=== PATIENT | female | born 1965 | race Caucasian/White ===

== ENCOUNTER 2019-10-24 09:11 | Emergency (ER) | payer OTHER, SELFPAY ==
--- NOTE | 2019-10-24 09:15 | ED.GENADULT ---
HPI - General Adult General Chief complaint: Extremity Injury, Lower Stated complaint: right leg/foot pain Time Seen by Provider: 10/24/19 09:25 Source: patient Mode of arrival: ambulatory Limitations: no limitations History of Present Illness HPI narrative: 53-year-old female patient presents to the [facility] with complaints of right knee and right foot swelling x6 days. Patient states that 6 days ago she fell on her right knee injuring her leg. Patient states she has had bruising above the right knee as well as below the knee and noticed that she also does have some fluid around her knee which she has had before. Patient states that she came in today because this morning she noticed that her foot and ankle area was swelling significantly turning her toes purple. Patient states that it was causing a little bit of numbness and tingliness but that it did improve when she got up and walked around. Patient denies taking anything for pain. Patient states she really has not had too much pain except for around the knee area when she walks at times. Patient denies wrapping her foot and ankle and denies wrapping her knee. Patient states that she did sleep with her leg elevated yesterday but mostly when she has been sitting she has not been elevating her leg or foot. Related Data Allergies Allergy/AdvReac Type Severity Reaction Status Date / Time No Known Allergies Allergy Verified 02/15/17 06:40 Review of Systems Review of Systems: Narrative: CONSTITUTIONAL: Denies fever, chills, or sweats. EYES: Denies visual changes, redness, or discharge. ENT: Denies rhinorrhea, congestion, sore throat, or otalgia. CARDIOVASCULAR: Denies chest pain, palpitations, or edema. RESPIRATORY: Denies cough or dyspnea. GASTROINTESTINAL: Denies abdominal pain, nausea, vomiting, or diarrhea. GENITOURINARY: Denies dysuria or hematuria. SKIN: Denies rash or itching. MUSCULOSKELETAL: Denies back pain, joint pain, or myalgia. Positive right knee swelling and right foot swelling NEUROLOGIC: Denies headache, numbness, or weakness. PSYCHIATRIC: Denies anxiety or depression. [facility] Past Medical History Medical History (Updated 10/24/19 @ 09:33 by CLIFF Glover) Preeclampsia Surgical History Surgical History (Updated 10/24/19 @ 09:16 by Felicia D. Anahi, COIN COLLECTOR) Previous section Comments At the time of my signature I agree with nursing past medical history, surgical, social, and family history. There is no relevant family history pertinent to the presenting complaint. Exam Narrative: Exam Narrative: GENERAL: Well-appearing, well-nourished, and in no acute distress. HEAD: Normocephalic, atraumatic. EYES: PERRLA and EOMI. ENT: Nares clear, no rhinorrhea or epistaxis. Mucous membranes moist. NECK: Supple. No lymphadenopathy CHEST: Clear to auscultation. No respiratory distress. HEART: Regular rate and rhythm. No murmur heard. Normal peripheral pulses. ABDOMEN: Soft, nontender, nondistended, normal active bowel sounds. EXTREMITIES: Patient is able to bear weight and ambulate without pain. No surface trauma, STS, there is an obvious effusion noted over the right knee. There is some healing bruising noted to the right thigh area above the right knee as well as some bruising to the anterior tib-fib area right below the right knee. No overlying erythema or warmth. The R knee is without obvious asymmetry or deformity when compared to the L knee. Patient is able to do deep knee bend with symmetry, fully extend knee, internal and external rotation. Slight tendernss to palpation of the patella, effusion and ballottement present to right knee. No tenderness over the infrapatellar tendon. No tenderness over the medial or lateral joint lone ot the medial or lateral tibial plateaus. no tenderness over the proximal fibular head. no tenderness, fullness, or mass of the popliteal fossa. No quadriceps tenderness. No laxity of the ACL, PCL, MCL, or LCL. No collatera
[2019-10-24 09:24] VITALS: BP 151/75; PULSE 88; RESP 16; TEMP 36.9; O2SAT 97
== END 2019-10-24 09:45 | disposition home or self-care (01) ==
PROVIDERS: Emergency Provider Nurse Practitioner Family
DX: M25.461 Effusion, right knee (principal); M79.89 Other specified soft tissue disorders; R03.0 Elevated blood-pressure reading, without diagnosis of hypertension
CPT/HCPCS: 99212; G0463

== ENCOUNTER 2023-11-17 09:19 | Emergency (ER) | payer OTHER, SELFPAY ==
--- NOTE | ~2023-11-17 | XR_ITS ---
EXAMINATION: XR knee LT min 4V DATE: 11/17/2023 09:53 INDICATION: Unable to straighten left knee. TECHNIQUE: 4 views of left knee were obtained. COMPARISON: None. FINDINGS: Bone alignment is normal. No fracture. There is severe osteoarthritis of medial compartment , moderate osteoarthritis of patellofemoral compartment, and mild osteoarthritis of lateral compartme nt. There is a small knee joint effusion. IMPRESSION: 1. Severe left knee osteoarthritis. 2. Small left knee joint effusion. Reviewed, dictated and finalized at location A.
--- NOTE | 2023-11-17 09:22 | ED.EXTPRO ---
HPI - Extremity Problem General Chief complaint: Extremity Problem,Nontraumatic Stated complaint: Left Knee Pain Time Seen by Provider: 11/17/23 09:37 Source: patient, RN notes reviewed and old records reviewed Mode of arrival: ambulatory Limitations: no limitations History of Present Illness HPI Narrative: 57-year-old female presents to the [facility] with complaints of 1 and half weeks of knee ?tightness? as well as at times states that she cannot straighten her knee. Denies any injury. Denies any increased swelling. Patient is morbidly obese. Related Data Home Medications Medication Instructions Recorded Confirmed No Home Medications 11/17/23 11/17/23 Allergies Allergy/AdvReac Type Severity Reaction Status Date / Time No Known Allergies Allergy Verified 11/17/23 09:37 Review of Systems Review of Systems: All systems reviewed & are unremarkable except as noted in HPI and below Constitutional: Constitutional: Reports no additional constitutional complaints Eyes: Eyes: Reports no additional eye complaints ENT: Reports system reviewed and no additional complaints, except as documented Cardiovascular: Cardiovascular: Reports no additional cardiovascular complaints, Denies chest pain and Denies dyspnea Respiratory: Respiratory: Reports no additional respiratory complaints, Denies chest congestion, Denies cough and Denies dyspnea Gastrointestinal: Gastrointestinal: Reports no additional gastrointestinal complaints, Denies abdominal pain, Denies nausea and Denies vomiting Musculoskeletal: Musculoskeletal: Reports as per HPI and Reports arthralgias (Left knee) Integumentary/Breasts: Skin/Breast: Reports system reviewed and no additional complaints, except as docu Neurologic: Reports system reviewed and no additional complaints, except as documented Psychiatric: Psychiatric: Reports no additional psychiatric complaints Allergic/Immunologic: Allergic/Immunologic: Reports no additional allergic/immunologic complaints PMFSH Past Medical History Medical History Preeclampsia Surgical History Surgical History Previous section Comments At the time of my signature, I reviewed and agree with the nursing past medical, surgical, social, and family history. There is no relevant family history pertinent to the patient complaint. Exam Const: General: cooperative, healthy appearing, comfortable, no acute distress, well developed, alert and well nourished Nutritional Appearance: well nourished and obese morbidly obese Orientation/consciousness: patient oriented x3 Limitations: no limitations HENMT: Head: normal to inspection Ears: hearing grossly normal bilaterally and external ears normal Face/Nose/Sinus: Normal external nose present, Normal nares present, Normal nasal mucous membranes and turbinates present, normal facial exam and face symmetric Face and sinus: normal facial exam and face symmetric Eyes: General: appearance normal, both eyes and all related structures Alignment and Position: alignment normal Periorbital: periorbital findings normal Pupils: Equal, round and reactive pupils present EOM: EOMs intact bilaterally Neck: Neck: normal visual inspection and full ROM Chest: Chest palpation & inspection: normal inspection of the chest Resp: Effort & Inspection: normal respiratory effort and able to speak in complete sentences Cardio: Rate: regular rate Rhythm: regular rhythm Skin: General skin exam: normal color and no rashes or lesions noted Lesions: no lesions Rashes: no rashes Trauma: no lacerations or abrasions Wounds: no wounds Neuro: General: patient oriented x3, tone normal, moves all extremities and no meningeal signs Cranial nerves: Yes Equal, round and reactive pupils present Cognition (Neuro): normal cognition Speech: normal speech Gait exam (Neuro): Other gait o
[2023-11-17 09:31] VITALS: BP 154/95; PULSE 83; RESP 16; TEMP 36.8; O2SAT 97
== END 2023-11-17 10:25 | disposition home or self-care (01) ==
PROVIDERS: Emergency Provider Nurse Practitioner
DX: M17.12 Unilateral primary osteoarthritis, left knee (principal); E66.01 Morbid (severe) obesity due to excess calories; Z68.43 Body mass index [BMI] 50.0-59.9, adult
CPT/HCPCS: 73564; 99213; G0463

== ENCOUNTER 2024-04-21 01:15 | Day surgery (SDC) | payer OTHER, SELFPAY ==
[2024-04-15 10:16] VITALS: BMI 48.6
--- NOTE | 2024-04-15 10:22 | PC.NURSE ---
Report to the Outpatient Waiting Room, entrance under the green pavilion located off [facility], at time _1pm_ on date _[id number]_. Planned Procedure Time: _3pm_.? Time changes happen often and if your time is changed the preop area will call you the afternoon before. - You and your visitor will be asked to self-screen and do not enter if you have any COVID symptoms. Please call surgeon if you need to reschedule. - A mask is optional within the hospital at this time. Patients may have clear liquids (water, carbonated beverages, clear teas, apple juice) until 3 hours prior to surgery with a maximum of 20 ounces. - No food from midnight until time of surgery and no smoking Take only the following medications with a SIP of water on the morning of surgery: ___None___ DO NOT STOP ANY OF YOUR OTHER PRESCRIPTION MEDICATIONS PRIOR TO SURGERY EXCEPT THE FOLLOWING Medications to discontinue per physician ____Avoid Ibuprofen, Acetaminophen is OK to use. Please no make-up, nail burkinan, hairspray, perfume, deodorant, or body powder the day of surgery.? No jewelry (including any body piercings) or valuables the day of surgery, leave them at home.? Please take a shower or bath the night before, or the morning of, surgery with an antibacterial soap.? Wear comfortable, loose fitting clothing.? - Jewelry must be removed prior to entering the operating room.? Rings and piercings that are not removed may be cut off. - The hospital will not accept responsibility for valuables.? - Please leave all valuables, including medications, at home the day of surgery. If you are going home after surgery, a licensed flatbed company driver must drive you home.? - NO public transportation without another adult if you receive anesthesia. - We recommend that an adult stay with you for 24 hours following discharge. - We also recommend that you do not drive, make important decision, drink alcoholic beverages, or take any drugs that were not prescribed by your health care provider for at least 24 hours after your discharge time. Follow any additional instructions given to you from your surgeon. Telephone instructions given to _Catei__and asked if any additional questions and then verbalized understanding. Patient advised to call surgeon office or pre surgery nurse liaison [phone] if any additional questions.
--- NOTE | 2024-04-20 15:52 | WPDANESEPP ---
Anes - Eval Pre Procedure Procedure: Operation Date: 04/21/24 14:30 Proposed Procedures p Hysteroscopy Dilation and Curettage - Mavis Roland MD Date/Time: 04/20/24 15:52 Pre Op Diagnosis: post menopausal bleeding Patient Data Age: 58 Gender: F Height: 1.65 m Weight: 132.7 kg Allergies Allergy/AdvReac Type Severity Reaction Status Date / Time No Known Allergies Allergy Verified 04/15/24 10:14 Home Medications Medication Instructions Recorded Confirmed Type ibuprofen 200 mg tablet (Advil) 200 mg PO Q6H PRN Pain 01/31/24 04/15/24 History Patient hx anesthesia problems: none Family hx anesthesia problems: none Results Review: All pre-operative results and documents have been reviewed as part of the pre-operative evaluation. [facility] Past Medical History Medical History Preeclampsia Surgical History Surgical History Previous section Family History Family History Mother Cancer Father Diabetes mellitus Hypertension Sibling Asthma Diabetes mellitus Cancer Grandparent Cancer Cerebrovascular accident Social History Social History Smoking status: Never smoker Alcohol intake: current Alcohol use details: 2 drinks per year Substance use: never Do You Feel Safe in your Home?: Yes Lack of Transportation: No Lack of Food: Never True Current Housing: I Have Housing Concerned About Future Housing: No Difficulty Paying Gas/Electric Bills: No Difficulty Paying for Meds: No Currently Unemployed: No Education: High School Diploma/GED Difficulty w/ Childcare or Family Care: No Living arrangements: with family Additional living arrangements comments: son 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
[2024-04-21] VITALS (7 sets, daily range): BP systolic 117–157; BP diastolic 65–84; PULSE 67–93; RESP 14–18; TEMP 36.1–36.3; O2SAT 99–100
--- NOTE | 2024-04-21 07:14 | WPDHPUPDATE1 ---
History and Physical Update Update Date/Time: 04/21/24 07:14 History and Physical has been reviewed, including an updated exam of the patient. There are NO changes in the patient's condition. Risks, benefits, and alternatives have been discussed and questions answered. Patient agrees to proceed with hysteroscopy with D&C.
--- NOTE | 2024-04-21 12:47 | P.PNAN_ITS ---
Anes - Initial Pre Proc Eval Procedure: Operation Date: 04/21/24 14:30 Proposed Procedures p Hysteroscopy Dilation and Curettage - Mavis Roland MD Date/Time: 04/21/24 12:47 Surgeon: Mavis Roland MD Pre Op Diagnosis: post menopausal bleeding Patient Data Age: 58 Gender: F Height: 1.65 m Weight: 132.7 kg Allergies Allergy/AdvReac Type Severity Reaction Status Date / Time No Known Allergies Allergy Verified 04/15/24 10:14 Home Medications Medication Instructions Recorded Confirmed Type ibuprofen 200 mg tablet (Advil) 200 mg PO Q6H PRN Pain 01/31/24 04/15/24 History Patient hx anesthesia problems: none Family hx anesthesia problems: none Results Review: All pre-operative results and documents have been reviewed as part of the pre- operative evaluation. [facility] Past Medical History Medical History Preeclampsia Surgical History Surgical History Previous section Family History Family History Mother Cancer Father Diabetes mellitus Hypertension Sibling Asthma Diabetes mellitus Cancer Grandparent Cancer Cerebrovascular accident Social History Social History Smoking status: Never smoker Alcohol intake: current Alcohol use details: 2 drinks per year Substance use: never Do You Feel Safe in your Home?: Yes Lack of Transportation: No Lack of Food: Never True Current Housing: I Have Housing Concerned About Future Housing: No Difficulty Paying Gas/Electric Bills: No Difficulty Paying for Meds: No Currently Unemployed: No Education: High School Diploma/GED Difficulty w/ Childcare or Family Care: No Living arrangements: with family Additional living arrangements comments: son 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 Gender identity (if verbalized by the patient): Female Sexual Orientation (if Verbalized by the Patient): Straight or Heterosexual Spiritual care concerns: No Anes - Eval Final PreProcedure Day of Procedure 04/21/24 12:47 Patient weight: morbidly obese Heart: regular rate and rhythm Lungs: clear to auscultation Airway: Mallampati scale class II Neurological: alert and oriented Last oral intake: >/= 8 hours ASA classification: III Emergent: no Anesthetic plan: proceed Anesthesia type and monitoring: general GIVS and standard monitoring Results Review: All pre-operative results and documents have been reviewed as part of the pre- operative evaluation. Informed Consent: The patient's anesthetic plan and its attendant risks and benefits were discussed with the patient/family/POA. Questions were solicited and answers provided to the satisfaction of the patient/family/POA.
[2024-04-21] MEDS: LACTATED RINGERS 1,000 ML 30 ML IV CONT (12:50)
[2024-04-21] MEDS: ACETAMINOPHEN 500 MG TABLET 1000 MG PO (13:19)
[2024-04-21] MEDS: KETOROLAC 15 MG/ML VIAL (*BKC) IV PUSH (14:55)
--- NOTE | 2024-04-21 15:05 | P.OP_ITS ---
Procedure Note - Detailed Date of Procedure 04/21/24 Pre-op Diagnosis post menopausal bleeding Post-op Diagnosis Same Procedure Performed Hysteroscopy with polypectomy Surgeon Mavis Roland MD Anesthesia General Findings Uterus sounded to 10cm, cervix stenotic. On entry into cervical canal, large polyp noted-- found to have been arising from the left cornua/posterior wall. Other smaller polyps noted from right cornua-- all polyps removed using the Aveta tissue shaver. Increased vascularity noted throughout cavity. Good hemostasis noted at end of case. Fluid deficit: 80cc. Description of Procedure aLkesha was taken to the operating room where she was placed under general anesthesia with LMA without complications. She was then prepped and draped in the usual sterile fashion in the dorsal lithotomy position with her legs in low Marques stirrups. A time-out was performed and no perioperative antibiotics were indicated. A bivalve speculum was placed within the vagina where the cervix was easily identified. The anterior lip of the cervix was grasped with a single- tooth tenaculum. The cervix was found to be stenotic, but after adhesions were broken, the cervix was then serially dilated to allow for the hysteroscope. The hysteroscope was advanced into the uterine cavity with the above findings noted. Using the Aveta tissue shaver, the polyps were removed. A sampling from the entire uterus was obtained using the tissue shaver. Good hemostasis was noted. All instruments were removed from the vagina. Sponge, lap, instrument, and needle counts were correct at the end of the procedure. Patient was awoken from anesthesia and taken to recovery with plans of same-day discharge home. Estimated Blood Loss 10 IV Fluids 500 Pathology Yes (endometrial polyp/mass and endometrial shavings) Complications No immediate complications Condition Stable Disposition Same day [facility] Billing Surgery - Charge Forward: Surgery Billing
[2024-04-21] MEDS: fentaNYL CITRATE INJ (*CRX) 100 MCG/2 ML VIAL 25 MCG IV PUSH ×2 (15:30→15:33)
== END 2024-04-21 16:42 | disposition home or self-care (01) ==
PROVIDERS: PCP Family Medicine; Visit Provider Obstetrics & Gynecology
PROC: 0U5B8ZZ Destruction of Endometrium, Via Natural or Artificial Opening Endoscopic (ICD-10-PCS; CPT 58563; principal; 2024-04-21 14:30)
DX: N84.0 Polyp of corpus uteri (principal); E66.01 Morbid (severe) obesity due to excess calories; Z68.42 Body mass index [BMI] 45.0-49.9, adult; Z79.1 Long term (current) use of non-steroidal anti-inflammatories (NSAID); Z98.890 Other specified postprocedural states; Z80.9 Family history of malignant neoplasm, unspecified; Z82.49 Family history of ischemic heart disease and other diseases of the circulatory system
CPT/HCPCS: 58558; 88305; A9270; J1100; J1885; J2250; J2405; J2704; J3010; J7120

== ENCOUNTER 2024-05-02 08:28 | Outpatient (CLI) | payer OTHER, SELFPAY ==
[2024-05-02 09:03] LABS: Hematocrit 50.7 % (37.0-47.0); Hemoglobin 15.8 g/dL (12.0-15.0); Mean Corpuscular HGB Conc 31.2 g/dl (32-36); Mean Corpuscular Hemoglobin 27.3 pg (26-34); Mean Corpuscular Volume 87.6 fl (80-100); Mean Platelet Volume 10.8 fl (7.4-10.4); Platelet Count Result 270 k/mm3 (150-375); Red Blood Count 5.79 M/mm3 (4.2-5.4); Red Cell Distribution Width 14.6 % (11.5-14.5); White Blood Count 6.1 K/mm3 (4.5-10.0)
[2024-05-02 11:07] LABS: LDL Cholesterol Direct 120 mg/dL
[2024-05-02 11:09] LABS: Alanine Aminotransferase 33 U/L (6-35); Albumin Level 4.3 g/dL (3.5-5.1); Alkaline Phosphatase 100 U/L (38-126); Anion Gap 7 mmol/L (4-12); Aspartate Amino Transferase 47 U/L (14-36); Bilirubin,Total 0.9 mg/dL (0.2-1.3); Blood Urea Nitrogen 13 mg/dL (7-17); Carbon Dioxide 26 mmol/L (22-30); Chloride 105 mmol/L (98-107); Cholesterol 203 mg/dL (0-200); Estimated Glomerular Filt Rate > 60; Glucose 118 mg/dL (65-110); HDL Direct 46 mg/dL; Potassium 4.6 mmol/L (3.4-5.0); Sodium 138 mmol/L (137-145); Triglycerides 123 mg/dL (<150)
== END 2024-05-02 08:29 | disposition home or self-care (01) ==
LOC: ANHLAB 08:29
PROVIDERS: PCP Family Medicine; Visit Provider Family Medicine
DX: E66.01 Morbid (severe) obesity due to excess calories (principal); F41.9 Anxiety disorder, unspecified; I10 Essential (primary) hypertension; M19.90 Unspecified osteoarthritis, unspecified site; Z79.899 Other long term (current) drug therapy
CPT/HCPCS: 36415; 80053; 80061; 84443; 85027

== ENCOUNTER 2024-05-06 08:21 | Outpatient (CLI) | payer OTHER, SELFPAY ==
[2024-05-06 09:30] LABS: Hemoglobin A1C 6.3 % (<5.7)
== END 2024-05-06 08:22 | disposition home or self-care (01) ==
LOC: ANHLAB 08:22
PROVIDERS: PCP Family Medicine; Visit Provider Family Medicine
DX: R73.09 Other abnormal glucose (principal)
CPT/HCPCS: 36415; 83036

== ENCOUNTER 2024-08-27 08:07 | Outpatient (CLI) | payer OTHER, SELFPAY ==
--- OUTSIDE RECORDS SUMMARY | 2024-08-27 08:14 | XMS_ITS | Clinical Summary ---
Author Organization [facility] Address [address] [place] [id number] Care Team Providers Care Child Care Counselor Name Role Phone Unknown, Notinfile Primary Care Provider Unavail able Mavis Roland MD Unavailable [phone] Allergies No known active allergies Medications lisinopriL (PRINIVIL,ZESTR IL) 10 mg tablet Take 1 tablet (10 mg total) by mouth daily 4 Active nystatin-triamc inolone ointment APPLY TOPICALLY TO GROIN TWICE DAILY FOR RASH 4 Active Active Problems No known active problems Immunizations Immunization Administration Dates Next Due Influenza, Trivalent, Recomb inant, Egg Free, Preservative Free, Antibiotic Free, IM (FLUBLOK) 05/01/2024 Family History Medical History Relation Name Comments Liver cancer Mother Relation Name Status Comments Mother Social History Tobacco Use Types Packs/Day Years Used Date Smoking Tobacco: Never Passive Smoke Exposure: Never Smokeless Tobacco: Never Tobacco Cessation:Counseling Given: Not Answered Comments Unknown Sex and Gender Information Value Date Recorded Sex Assigned at Not on file Legal Sex Female 2:11 PM ASSEMBLY PERSON Gender Identity Not on file Sexual Orientation Not on file Obstetrics History Last Filed Vital Signs Vital Sign Reading Time Taken Comments Blood Pressure 139/77 05/27/2024 10:07 AM ASSEMBLY PERSON Pulse 88 05/27/2024 10:07 AM ASSEMBLY PERSON Temperature 37.1 C (98.7 F) 05/27/2024 10:07 AM ASSEMBLY PERSON Respiratory Rate 16 05/27/2024 10:0 7 AM ASSEMBLY PERSON Oxygen Saturation 97% 05/27/2024 10: 07 AM ASSEMBLY PERSON Inhaled Oxygen Concentration - - Weight 128.5 kg (283 lb 6.4 oz) 024 10:07 AM ASSEMBLY PERSON Height 163.5 cm (5' 4.37 ) 05/27/2024 1 0:07 AM ASSEMBLY PERSON Body Mass Index 48.09 05/27/2024 10:07 AM ASSEMBLY PERSON Plan of Treatment Health Maintenance Due Date Last Done Comments Cervical Cancer Screening 1964 Colon Cancer Screening-Colonoscopy 1964 Depression Screening 1964 Hepatitis C Screening 1964 DTaP/Tdap/Td Vaccine (1 - Tdap) 12/04/1975 Hepatitis B Screening 1982 Regular Well Visit/Exam 18-64 1982 Zoster Vaccine (1 of 2) 2014 Covid-19 Vaccine (3 - 2023-2 5 season) 2024 05/04/2021, 08/30/2020 Breast Cancer Screening-Mammogram 04/10/2025 04/10/2024, 04/10/2024 Influenza Vaccine Completed 05/01/2024 Pneumococcal vaccine <65 Aged Out No longer eligible based on patient's age to complete this topic Insurance [phone] ([address] [address] Care Teams Child Care Counselor Relationship Specialty Start Date End Date Unknown, Notinfile PCP - General 05/27/24 Mavis Roland MD [address] [place] [address] Obstetrics and Gynecology 05/28/24
--- OUTSIDE RECORDS SUMMARY | 2024-08-27 08:14 | XMS_ITS | Clinical Summary ---
Author Organization [facility] Address [address] [place] [address] Phone Care Team Providers Care Plastics Process Hand Name Role Phone Unavailable Primary Care Provider Unavailabl e Encounters Date Type Department Care Team Description 08/26/2024 External Device Data STL ABSTRACTION Provider, Abstract 08/12/2024 External Device Data STL ABSTRACTION Provider, Abstract 07/17/2024 External Device Data STL ABSTRACTION Provider, Abstract 07/16/2024 External Device Data STL ABSTRACTION Provider, Abstract 07/15/2024 External Device Data STL ABSTRACTION Provider, Abstract 07/09/2024 External Device Data STL ABSTRACTION Provider, Abstract 07/01/2024 External Device Data STL ABSTRACTION Provider, Abstract from Last 3 Months Family History Medical History Relation Name Comments Breast Cancer Maternal Aunt Relation Name Status Comments Maternal Aunt Social History Tobacco Use Types Packs/Day Years Used Date Smoking Tobacco: Never Assessed Comments Unknown Sex and Gender Information Value Date Recorded Sex Assigned at Not on file Legal Sex Female 11:24 AM CDT Gender Identity Female 04/10/2024 2:48 PM CDT Sexual Orientation Straight 04/10/2024 2: 48 PM CDT Plan of Treatment Health Maintenance Due Date Last Done Comments DTAP/TDAP/TD VACCINES (1 - Tdap) 12/04/1983 HEPATITIS B VACCINES (1 of 3 - 19+ 3-dose series) 12/04/1983 CERVICAL CANCER SCREENING 1994 COLORECTAL SCREENING 2009 Colorectal Cancer Screening 2009 FIT-DNA Q 3 years 2009 FIT/FOBT Q 1 year 2009 Flex Sig/CT Colonography Q 5 years 2009 ZOSTER VACCINE (1 of 2) 2014 INFLUENZA VACCINE (#1) 2024 BREAST CANCER SCREENING 04/10/2025 04/10/2024 PNEUMOCOCCAL VACCINE 0-49 YEARS Aged Out No longer eligible based on patient's age to complete this topic Procedures Procedure Name Priority Date/Time Associated Diagnosis Comments MAMMO 3D AURELIO SCREEN BILAT W OR WO CAD Routine 04/10/2024 11:28 AM CDT Visit for screening mammogram from Last 3 Months or Most Recently Relevant to Health Maintenance Results * MAMMO 3D AURELIO SCREEN BILAT W OR WO CAD (04/10/2024 11:28 AM CDT) Anatomical Region Laterality Modality Breast Bilateral Mammography 04/10/2024 11:2 9 AM CDT Impressions 04/11/2024 8:24 AM CDT IMPRESSION: 1. No concerning findings. OVERALL FINAL ASSESSMENT: BI-RADS CATEGORY 1 - Negative. RECOMMENDATIONS: 1. Recommend annual mammography. DICTATION LOCATION: [facility] Narrative 04/11/2024 8:24 AM CDT BILATERAL SCREENING DIGITAL MAMMOGRAM WITH 3D TOMOSYNTHESIS AND CAD DATE: 04/10/2024 11:28 AM HISTORY: Routine yearly screening exam. TECHNIQUE: Low-dose full-field digital breast tomosynthesis examination was performed of both breasts with 2D and 3D acquisitions. CAD was utilized. COMPARISON: None BREAST COMPOSITION: There are scattered areas of fibroglandular density. FINDINGS: No concerning dominant masses, suspicious calcifications, parenchymal asymmetries or areas of architectural distortion are identified in either breast. Procedure Note Emile Bass MD - 04/11/2024 BILATERAL SCREENING DIGITAL MAMMOGRAM WITH 3D TOMOSYNTHESIS AND CAD DATE: 04/10/2024 11:28 AM HISTORY: Routine yearly screening exam. TECHNIQUE: Low-dose full-field digital breast tomosynthesis examination was performed of both breasts with 2D and 3D acquisitions. CAD was utilized. COMPARISON: None BREAST COMPOSITION: There are scattered areas of fibroglandular density. FINDINGS: No concerning dominant masses, suspicious calcifications, parenchymal asymmetries or areas of architectural distortion are identified in either breast. IMPRESSION: 1. No concerning findings. OVERALL FINAL ASSESSMENT: BI-RADS CATEGORY 1 - Negative. RECOMMENDATIONS: 1. Recommend annual mammography. DICTATION LOCATION: [facility] Jacinta Rosenberggurmeetkayleen DO MAMMO ORDERABLES Final Res ult from Last 3 Months or Most Recently Relevant to Health Maintenance Insurance [employer] OPEN ACCESS HMO [employer] OPEN ACCESS HMO
--- OUTSIDE RECORDS SUMMARY | 2024-08-27 08:14 | XMS_ITS | Referral Summary ---
Author Organization [facility] Address [address] [place] [id number] Care Team Providers Care Piano Case Maker Name Role Phone Unknown, Notinfile Primary Care Provider Unavail able Mavis Roland MD Unavailable [phone] Allergies No known active allergies Medications lisinopriL (PRINIVIL,ZESTR IL) 10 mg tablet Take 1 tablet (10 mg total) by mouth daily 4 Active nystatin-triamc inolone ointment APPLY TOPICALLY TO GROIN TWICE DAILY FOR RASH 4 Active Active Problems No known active problems Immunizations Immunization Administration Dates Next Due Influenza, Trivalent, Recomb inant, Egg Free, Preservative Free, Antibiotic Free, IM (FLUBLOK) 05/01/2024 Social History Tobacco Use Types Packs/Day Years Used Date Smoking Tobacco: Never Passive Smoke Exposure: Never Smokeless Tobacco: Never Tobacco Cessation:Counseling Given: Not Answered Comments Unknown Sex and Gender Information Value Date Recorded Sex Assigned at Not on file Legal Sex Female 2:11 PM INFRASTRUCTURE MANAGER Gender Identity Not on file Sexual Orientation Not on file Last Filed Vital Signs Vital Sign Reading Time Taken Comments Blood Pressure 139/77 05/27/2024 10:07 AM INFRASTRUCTURE MANAGER Pulse 88 05/27/2024 10:07 AM INFRASTRUCTURE MANAGER Temperature 37.1 C (98.7 F) 05/27/2024 10:07 AM INFRASTRUCTURE MANAGER Respiratory Rate 16 05/27/2024 10:0 7 AM INFRASTRUCTURE MANAGER Oxygen Saturation 97% 05/27/2024 10: 07 AM INFRASTRUCTURE MANAGER Inhaled Oxygen Concentration - - Weight 128.5 kg (283 lb 6.4 oz) 024 10:07 AM INFRASTRUCTURE MANAGER Height 163.5 cm (5' 4.37 ) 05/27/2024 1 0:07 AM INFRASTRUCTURE MANAGER Body Mass Index 48.09 05/27/2024 10:07 AM INFRASTRUCTURE MANAGER Plan of Treatment Not on file Insurance [employer] [address] [id number] Care Teams Piano Case Maker Relationship Specialty Start Date End Date Unknown, Notinfile PCP - General 05/27/24 Mavis Roland MD [address] [place] [address] Obstetrics and Gynecology 05/28/24
--- OUTSIDE RECORDS SUMMARY | 2024-08-27 08:14 | XMS_ITS | Encounter Summary ---
Author Organization [facility] Address [address] [place] [address] Care Team Providers Care Junior Recruiter Name Role Phone Unavailable Primary Care Provider Unavailabl e Encounter Details Date Type Department Care Team (Late st Contact Info) Description 08/26/2024 External Device Data STL ABSTRACTION Provider, Abstract NO ADDRESS ON FILE Social History Tobacco Use Types Packs/Day Years Used Date Smoking Tobacco: Never Assessed Comments Unknown Sex and Gender Information Value Date Recorded Sex Assigned at Not on file Legal Sex Female 11:24 AM CDT Gender Identity Female 04/10/2024 2:48 PM CDT Sexual Orientation Straight 04/10/2024 2: 48 PM CDT documented as of this encounter Plan of Treatment Not on file documented as of this encounter Visit Diagnoses Not on filedocumented in this encounter
[2024-08-27 12:56] LABS: Alanine Aminotransferase 25 U/L (6-35); Albumin Level 4.3 g/dL (3.5-5.1); Alkaline Phosphatase 86 U/L (38-126); Anion Gap 11 mmol/L (4-12); Aspartate Amino Transferase 56 U/L (14-36); Bilirubin,Total 0.7 mg/dL (0.2-1.3); Blood Urea Nitrogen 23 mg/dL (7-17); Calcium 9.4 mg/dL (8.4-10.2); Carbon Dioxide 26 mmol/L (22-30); Chloride 105 mmol/L (98-107); Cholesterol 204 mg/dL (0-200); Estimated Glomerular Filt Rate > 60; Glucose 89 mg/dL (65-110); HDL Direct 41 mg/dL; Sodium 142 mmol/L (137-145); Triglycerides 96 mg/dL (<150)
[2024-08-27 13:00] LABS: Hematocrit 46.9 % (37.0-47.0); Mean Corpuscular Hemoglobin 28.2 pg (26-34); Mean Corpuscular Volume 88.3 fl (80-100); Mean Platelet Volume 11.8 fl (7.4-10.4); Platelet Count Result 264 k/mm3 (150-375); Red Blood Count 5.31 M/mm3 (4.2-5.4); Red Cell Distribution Width 14.3 % (11.5-14.5); White Blood Count 6.3 K/mm3 (4.5-10.0)
[2024-08-27 13:06] LABS: LDL Cholesterol Direct 108 mg/dL
[2024-08-27 13:54] LABS: Hemoglobin A1C 5.4 % (<5.7)
== END 2024-08-27 08:08 | disposition home or self-care (01) ==
LOC: ANHGOSHLAB 08:08
PROVIDERS: PCP Family Medicine; Visit Provider Family Medicine
DX: R73.03 Prediabetes (principal); F41.9 Anxiety disorder, unspecified; I10 Essential (primary) hypertension; E66.01 Morbid (severe) obesity due to excess calories; Z79.899 Other long term (current) drug therapy
CPT/HCPCS: 36415; 80053; 80061; 83036; 84443; 85027

== ENCOUNTER 2025-01-06 13:32 | Outpatient (CLI) | payer OTHER, SELFPAY ==
--- NOTE | ~2025-01-06 | XR_ITS ---
Left Knee Technique: AP, lateral, and sunrise views were obtained. Clinical History: Pain Findings: No fracture or dislocation is seen. Osseous alignment is anatomic. Moderate to advanced tri compartmental degenerative joint disease is present. Soft tissues are unremarkable. No joint effusion is seen. Impression: Moderate to advanced tricompartmental degenerative joint disease. Reviewed, dictated and finalized at location . Impression: Moderate to advanced tricompartmental degenerative joint disease.
== END 2025-01-06 13:33 | disposition home or self-care (01) ==
LOC: GOSHIMG 13:32
PROVIDERS: PCP Family Medicine; Visit Provider Nurse Practitioner
DX: M17.12 Unilateral primary osteoarthritis, left knee (principal)
CPT/HCPCS: 73562

== ENCOUNTER 2025-01-20 08:06 | Outpatient (CLI) | payer OTHER, SELFPAY ==
--- OUTSIDE RECORDS SUMMARY | 2025-01-20 08:11 | XMS_ITS | Clinical Summary ---
Author Organization [facility] Address [address] [place] [address] Phone Care Team Providers Care Milled Lumber Grader Name Role Phone Unavailable Primary Care Provider Unavailabl e Encounters Date Type Department Care Team Description 12/16/2024 External Device Data STL ABSTRACTION Provider, Abstract 11/18/2024 External Device Data STL ABSTRACTION Provider, Abstract 11/12/2024 External Device Data STL ABSTRACTION Provider, Abstract 11/11/2024 External Device Data STL ABSTRACTION Provider, Abstract [...] Comments DTAP/TDAP/TD VACCINES (1 - Tdap) 12/04/1983 HPV/Cotest (21-29) 1985 CERVICAL CANCER SCREENING 1994 HPV/Cotest (30-65) 1994 PAP SMEAR 1994 COLORECTAL SCREENING 2009 Colorectal Cancer Screening 2009 FIT-DNA Q 3 years 2009 FIT/FOBT Q 1 year 2009 Flex Sig/CT Colonography Q 5 years 2009 ZOSTER VACCINE (1 of 2) 2014 INFLUENZA VACCINE (#1) 2025 BREAST CANCER SCREENING 04/10/2025 04/10/2024 RSV VACCINE (60+ or ) (1 - 1-dose 75+ series) 12/04/2039 HEPATITIS B VACCINES Aged Out No long er eligible based on patient's age to complete [...] RECOMMENDATIONS: 1. Recommend annual mammography. DICTATION LOCATION: [facility] Narrative 04/11/2024 8:24 AM CDT BILATERAL SCREENING [...] RECOMMENDATIONS: 1. Recommend annual mammography. DICTATION LOCATION: [facility] Jacinta Dipika Vernace DO MAMMO ORDERABLES Final Res ult from Last 3 Months or Most Recently Relevant to Health Maintenance Insurance [employer] OPEN ACCESS HMO [employer] OPEN ACCESS HMO
--- OUTSIDE RECORDS SUMMARY | 2025-01-20 08:11 | XMS_ITS | Clinical Summary ---
Author Organization [facility] Address [address] [place] [phone] Care Team Providers Care Environmental Associate Name Role Phone Unknown, Notinfile Primary Care Provider Unavail able Mavis Roland MD Unavailable [phone] Allergies No known active allergies Medications lisinopriL [...] on file Legal Sex Female 2:11 PM GUARD ENTRANCE REGISTRAR Gender Identity Not on file Sexual Orientation Not on file Obstetrics History Last Filed Vital Signs Vital Sign Reading Time Taken Comments Blood Pressure 139/77 05/27/2024 10:07 AM GUARD ENTRANCE REGISTRAR Pulse 88 05/27/2024 10:07 AM GUARD ENTRANCE REGISTRAR Temperature 37.1 C (98.7 F) 05/27/2024 10:07 AM GUARD ENTRANCE REGISTRAR Respiratory Rate 16 05/27/2024 10:0 7 AM GUARD ENTRANCE REGISTRAR Oxygen Saturation 97% 05/27/2024 10: 07 AM GUARD ENTRANCE REGISTRAR Inhaled Oxygen Concentration - - Weight 128.5 kg (283 lb 6.4 oz) 024 10:07 AM GUARD ENTRANCE REGISTRAR Height 163.5 cm (5' 4.37) 05/27/2024 1 0:07 AM GUARD ENTRANCE REGISTRAR Body Mass Index 48.09 05/27/2024 10:07 AM GUARD ENTRANCE REGISTRAR Plan of Treatment Health Maintenance Due Date Last Done Comments Cervical Cancer Screening 1964 Colon Cancer Screening-Colonoscopy 1964 Depression Screening 1964 Hepatitis C Screening 1964 DTaP/Tdap/Td Vaccine (1 - Tdap) 12/04/1975 Hepatitis B Screening 1982 Regular Well Visit/Exam 18-64 1982 Zoster Vaccine (1 of 2) 2014 Covid-19 Vaccine (3 - 2023-2 5 season) 2024 05/04/2021, 08/30/2020 Influenza Vaccine (#1) 2025 05/01/2024 Breast Cancer Screening-Mammogram 04/10/2025 04/10/2024, 04/10/2024 Pneumococcal vaccine <65 Aged Out No longer eligible based on patient's age to complete this topic Insurance [employer] Care Teams Environmental Associate Relationship Specialty Start Date End Date Unknown, Notinfile PCP - General 05/27/24 Mavis Roland MD [address] [place] [address] Obstetrics and Gynecology 05/28/24
--- OUTSIDE RECORDS SUMMARY | 2025-01-20 08:11 | XMS_ITS | Referral Summary ---
Author Organization [facility] Address [address] [place] [phone] Care Team Providers Care Rn Anesthetist Name Role Phone Unknown, Notinfile Primary Care Provider Unavail able Mavis Roland MD Unavailable [phone] Allergies No known active allergies Medications lisinopriL [...] on file Legal Sex Female 2:11 PM DECK OFFICER Gender Identity Not on file Sexual Orientation Not on file Last Filed Vital Signs Vital Sign Reading Time Taken Comments Blood Pressure 139/77 05/27/2024 10:07 AM DECK OFFICER Pulse 88 05/27/2024 10:07 AM DECK OFFICER Temperature 37.1 C (98.7 F) 05/27/2024 10:07 AM DECK OFFICER Respiratory Rate 16 05/27/2024 10:0 7 AM DECK OFFICER Oxygen Saturation 97% 05/27/2024 10: 07 AM DECK OFFICER Inhaled Oxygen Concentration - - Weight 128.5 kg (283 lb 6.4 oz) 024 10:07 AM DECK OFFICER Height 163.5 cm (5' 4.37) 05/27/2024 1 0:07 AM DECK OFFICER Body Mass Index 48.09 05/27/2024 10:07 AM DECK OFFICER Plan of Treatment Not on file Insurance [employer] [address] [id number] Care Teams Rn Anesthetist Relationship Specialty Start Date End Date Unknown, Notinfile PCP - General 05/27/24 Mavis Roland MD [address] [place] [address] Obstetrics and Gynecology 05/28/24
[2025-01-20 08:40] LABS: Hematocrit 45.5 % (37.0-47.0); Hemoglobin 14.6 g/dL (12.0-15.0); Mean Corpuscular HGB Conc 32.1 g/dl (32-36); Mean Corpuscular Hemoglobin 27.8 pg (26-34); Mean Corpuscular Volume 86.7 fl (80-100); Platelet Count Result 261 k/mm3 (150-375); Red Blood Count 5.25 M/mm3 (4.2-5.4); White Blood Count 6.5 K/mm3 (4.5-10.0)
[2025-01-20 08:50] LABS: Hemoglobin A1C 5.5 % (<5.7)
[2025-01-20 09:09] LABS: Alanine Aminotransferase 18 U/L (6-35); Albumin Level 4.2 g/dL (3.5-5.1); Alkaline Phosphatase 74 U/L (38-126); Anion Gap 9 mmol/L (4-12); Aspartate Amino Transferase 27 U/L (14-36); Bilirubin,Total 0.7 mg/dL (0.2-1.3); Blood Urea Nitrogen 14 mg/dL (7-17); Calcium 9.3 mg/dL (8.4-10.2); Carbon Dioxide 24 mmol/L (22-30); Chloride 107 mmol/L (98-107); Cholesterol 221 mg/dL (0-200); Estimated Glomerular Filt Rate > 60; Glucose 93 mg/dL (65-110); HDL Direct 46 mg/dL; Potassium 4.3 mmol/L (3.4-5.0); Sodium 140 mmol/L (137-145); Total Protein 7.2 g/dL (6.3-8.2); Triglycerides 78 mg/dL (<150)
[2025-01-20 10:16] LABS: Thyroid Stimulating Hormone 1.230 uIU/mL (0.465-4.680)
== END 2025-01-20 08:07 | disposition home or self-care (01) ==
LOC: ANHLAB 08:07
PROVIDERS: PCP Family Medicine; Visit Provider Family Medicine
DX: I10 Essential (primary) hypertension (principal); R73.03 Prediabetes; E66.01 Morbid (severe) obesity due to excess calories; Z79.899 Other long term (current) drug therapy
CPT/HCPCS: 36415; 80053; 80061; 83036; 84443; 85027

== ENCOUNTER 2025-06-22 09:04 | Outpatient (CLI) | payer OTHER, SELFPAY ==
--- OUTSIDE RECORDS SUMMARY | 2025-06-22 09:15 | XMS_ITS | Clinical Summary ---
Author Organization [facility] Address [address] [place] [phone] Care Team Providers Care Building Energy Consultant Name Role Phone Unknown, Notinfile Primary Care Provider Unavail able Mavis Roland MD Unavailable [phone] Allergies No known active allergies Medications lisinopriL [...] on file Legal Sex Female 2:11 PM ARCHITECTURAL EXAMINER Gender Identity Not on file Sexual Orientation Not on file Last Filed Vital Signs Vital Sign Reading Time Taken Comments Blood Pressure 139/77 05/27/2024 10:07 AM ARCHITECTURAL EXAMINER Pulse 88 05/27/2024 10:07 AM ARCHITECTURAL EXAMINER Temperature 37.1 C (98.7 F) 05/27/2024 10:07 AM ARCHITECTURAL EXAMINER Respiratory Rate 16 05/27/2024 10:0 7 AM ARCHITECTURAL EXAMINER Oxygen Saturation 97% 05/27/2024 10: 07 AM ARCHITECTURAL EXAMINER Inhaled Oxygen Concentration - - Weight 128.5 kg (283 lb 6.4 oz) 024 10:07 AM ARCHITECTURAL EXAMINER Height 163.5 cm (5' 4.37) 05/27/2024 1 0:07 AM ARCHITECTURAL EXAMINER Body Mass Index 48.09 05/27/2024 10:07 AM ARCHITECTURAL EXAMINER Plan of Treatment Health Maintenance Due Date Last Done Comments Cervical Cancer Screening 1964 Colon Cancer Screening-Colonoscopy 1964 Depression Screening 1964 Hepatitis C Screening 1964 DTaP/Tdap/Td Vaccine (1 - Tdap) 12/04/1975 Hepatitis B Screening 1982 Regular Well Visit/Exam 18-64 1982 Zoster Vaccine (1 of 2) 2014 Covid-19 Vaccine (3 - 2024-2 6 season) 2025 05/04/2021, 08/30/2020 Influenza Vaccine (#1) 2025 05/01/2024 Breast Cancer Screening-Mammogram 04/10/2025 04/10/2024, 04/10/2024 Pneumococcal vaccine <65 Aged Out No longer eligible based on patient's age to complete this [place] [id number] Care Teams Building Energy Consultant Relationship Specialty Start Date End Date Unknown, Notinfile PCP - General 05/27/24 Mavis Roland MD [address] [place] [address] Obstetrics and Gynecology 05/28/24
--- OUTSIDE RECORDS SUMMARY | 2025-06-22 09:15 | XMS_ITS | Clinical Summary ---
Author Organization [facility] Address [address] [place] [address] Phone Care Team Providers Care Electric Cell Tender Name Role Phone Unavailable Primary Care Provider Unavailabl e Family History Medical History Relation Name Comments [...] RECOMMENDATIONS: 1. Recommend annual mammography. DICTATION LOCATION: [facility] Narrative 04/11/2024 8:24 AM CDT BILATERAL SCREENING [...] RECOMMENDATIONS: 1. Recommend annual mammography. DICTATION LOCATION: [facility] Jacinta Gordillo DO MAMMO ORDERABLES Final Res ult from Last 3 Months or Most Recently Relevant to Health Maintenance Insurance [employer] OPEN ACCESS HMO [employer] OPEN ACCESS HMO
[2025-06-22 09:20] LABS: Hematocrit 43.8 % (37.0-47.0); Hemoglobin 14.0 g/dL (12.0-15.0); Mean Corpuscular HGB Conc 32.0 g/dl (32-36); Mean Corpuscular Hemoglobin 27.9 pg (26-34); Mean Corpuscular Volume 87.3 fl (80-100); Platelet Count Result 258 k/mm3 (150-375); Red Blood Count 5.02 M/mm3 (4.2-5.4); White Blood Count 6.2 K/mm3 (4.5-10.0)
[2025-06-22 09:48] LABS: Alanine Aminotransferase 16 U/L (6-35); Albumin Level 4.5 g/dL (3.5-5.1); Alkaline Phosphatase 87 U/L (38-126); Anion Gap 6 mmol/L (4-12); Aspartate Amino Transferase 33 U/L (14-36); Bilirubin,Total 0.6 mg/dL (0.2-1.3); Blood Urea Nitrogen 25 mg/dL (7-17); Calcium 9.6 mg/dL (8.4-10.2); Carbon Dioxide 29 mmol/L (22-30); Chloride 106 mmol/L (98-107); Cholesterol 184 mg/dL (0-200); Estimated Glomerular Filt Rate > 60; Glucose 96 mg/dL (65-110); HDL Direct 57 mg/dL; Potassium 4.0 mmol/L (3.4-5.0); Sodium 141 mmol/L (137-145); Total Protein 7.6 g/dL (6.3-8.2); Triglycerides 94 mg/dL (<150)
[2025-06-22 10:24] LABS: Thyroid Stimulating Hormone 1.880 uIU/mL (0.465-4.680)
[2025-06-22 10:35] LABS: Hemoglobin A1C 5.3 % (<5.7)
== END 2025-06-22 09:05 | disposition home or self-care (01) ==
LOC: ANHLAB 09:06
PROVIDERS: PCP Family Medicine; Visit Provider Family Medicine
DX: E78.5 Hyperlipidemia, unspecified (principal); F41.9 Anxiety disorder, unspecified; Z79.899 Other long term (current) drug therapy; I10 Essential (primary) hypertension; R73.03 Prediabetes; E66.01 Morbid (severe) obesity due to excess calories
CPT/HCPCS: 36415; 80053; 80061; 83036; 84443; 85027